=== PATIENT | female | born 1960 | race Two or more races ===

== ENCOUNTER 2020-05-29 07:05 | Inpatient (IN) | payer OTHER ==
[2020-05-29] VITALS (9 sets, daily range): BP systolic 114–139; BP diastolic 59–84
[~2020-05-29] VITALS: Ht 175.3 cm; Wt 98.4 kg
[~2020-05-29 07:05] MED LIST: RSO PO; VITAMIN D PO; [UNRECOGNIZED DRUG - OTHER] PO
--- NOTE | 2020-05-29 07:21 | Pre-Procedure Note/Attestation ---
Pre-Procedure Note/Attestation Complete Prior to Procedure Planned Procedure: not applicable Procedure Narrative: Cervical 5 6 artificial disc replacement versus anterior cervical discectomy and fusion with Cervical 67 anterior cervical discectomy and fusion versus artificial disc replacement Indications for Procedure Pre-Operative Diagnosis: C56 67 hnp Attestation I attest that I discussed the nature of the procedure; its benefits; risks and complications; and alternatives (and the risks and benefits of such alte rnatives), prior to the procedure, with the patient (or the patient's legal investment representative). I attest that, if there was a reasonable possibility of needing a blood transfusion, the patient (or the patient's legal investment representative) was given the [place] [facility] standardized written summary, pursuant to the Cristofer Corina Blood Safety Act ([place] Health and Safety Code # 1645, as amended). I attest that I re-evaluated the patient just prior to the surgery and that there has been no change in the patient's H&P, except as documented below: Guillermo Okeefe MD May 29, 2020 07:21
--- NOTE | 2020-05-29 07:22 | Brief Operative Note ---
Immediate Post Operative Note Operative Note Chief Complaint: neck pain and radiculopathy Pre-op Diagnosis: C56 67 hnp Procedure: Cervical 5 6 artificial disc replacement versus anterior cervical discectomy and fusion with Cervical 67 anterior cervical discectomy and fusion versus artificial disc replacement Post-op Diagnosis: same as pre-op Findings: consistent w/pre-op dx studies Surgeon: Maldonado Grill Attendant: Monique Anesthesiologist: Mundo Anesthesia: general Specimen: none Complications: none Condition: stable Fluids: IVF Estimated Blood Loss: minimal Drains: none Implant(s) used?: Yes - prodisc c sz 5 nuvasive c sz 6 osteocell 1cc Guillermo Okeefe MD May 29, 2020 07:22
[2020-05-29] MEDS ORDERED: Morphine Sulfate 2mg/ml Inj(IV/IM USE ONLY) IV PRN (07:30)
[2020-05-29] MEDS ORDERED: Chloraseptic Spray 20mL Bottle ORAL PRN (07:30)
[2020-05-29] MEDS ORDERED: Morphine Sulfate 4mg/ml Inj (IV USE ONLY) IV PRN ×2 (07:30)
[2020-05-29] MEDS ORDERED: HYDROcodone/Acetamin 7.5/325 tab ORAL PRN ×3 (07:30→08:30)
[2020-05-29] MEDS ORDERED: Metoclopramide 10mg/2ml Inj IVP PRN ×2 (07:30→08:30)
[2020-05-29] MEDS ORDERED: Naloxone 0.4mg/ml Inj IVP PRN (07:30)
[2020-05-29] MEDS ORDERED: HYDROcodone/Acetamin 5/325 tab ORAL PRN ×2 (07:30→08:30)
[2020-05-29] MEDS ORDERED: Milk of Magnesia 30ml Ud ORAL PRN (07:30)
[2020-05-29] MEDS ORDERED: HYDROmorphone 1mg/ml Carpuject IVP PRN (07:30)
--- NOTE | 2020-05-29 08:27 | Anethesia Preoperative Eval ---
Anesthesia Pre-op PMH/ROS General Date of Evaluation: May 29, 2020 Time of Evaluation: 09:29 Anesthesiologist: Kaya ASA Score: ASA 3 Mallampati Score Class I : Soft palate, uvula, fauces, pillars visible Class II: Soft palate, uvula, fauces visible Class III: Soft palate, base of uvula visible Class IV: Only hard plate visible Mallampati Classification: Class II Surgeon: Maldonado Diagnosis: Neck Pain Surgical Procedure: ACDF C5-6, ADR C6-7 Anesthesia History: none Family History: no anesthesia problems Allergies: Coded Allergies: MEPERIDINE (Verified Allergy, Severe, MIGRAINE, 05/27/20) PENICILLINS (Verified Allergy, Intermediate, ITCHING, 05/27/20) Medications: see eMAR Patient NPO?: Yes Past Medical History Hematology/Immune: Reports: anemia Other: obesity - BMI 33 PSxH Narrative: Abd Sx, C/S Anesthesia Pre-op Phys. Exam Physician Exam Last Vital Signs Date Time Temp Pulse Resp B/P (MAP) Pulse Ox O2 Delivery O2 Flow Rate FiO2 05/29/20 08:02 97.7 71 20 114/71 (85) 96 Constitutional: NAD Neurologic: CN 2-12 intact Cardiovascular: RRR Respiratory: CTA Gastrointestinal: S/NT/ND Airway Exam Mallampati Score: Class II MO: full ROM: limited Teeth: missing, intact Anesthesia Pre-op A/P Risk Assessment & Plan Assessment: ASA 3 Plan: GA, SED, GlideScope Status Change Before Surgery: No Pre-Antibiotics Dru Grams Ancef IV Given Within 1 Hr of Incision: Yes Time Given: 09:51 Shane Kirkpatrick MD May 29, 2020 08:27
--- NOTE | 2020-05-29 08:28 | Immediate Post-Op Evaluation ---
Immediate Post-Op Evalulation Immediate Post-Op Evalulation Procedure: ACDF C5-6,ADR C6-7 Date of Evaluation: May 29, 2020 Time of Evaluation: 12:19 IV Fluids: 900 LR Blood Products: 0 Estimated Blood Loss: 50 Urinary Output: 400 Blood Pressure Systolic: 141 Blood Pressure Diastolic: 74 Pulse Rate: 73 Respiratory Rate: 16 O2 Sat by Pulse Oximetry: 98 Temperature (Fahrenheit): 97.1 Pain Score (1-10): 2 Nausea: No Vomiting: No Complications 0 Patient Status: awake, reacts, patent, extubated, none Hydration Status: adequate Dru Grams Ancef IV Given Within 1 Hr of Incision: Yes Time Given: 09:51 Shane Kirkpatrick MD May 29, 2020 08:28
[2020-05-29] MEDS ORDERED: Atropine Sulfate 0.4mg/ml inj IVP PRN (08:30)
[2020-05-29] MEDS ORDERED: Labetalol 5mg/ml 20ml vial IV PRN (08:30)
[2020-05-29] MEDS ORDERED: oxyCODONE HCL/Acetaminophen 5/325mg ORAL PRN (08:30)
[2020-05-29] MEDS ORDERED: Ketorolac 30mg Inj IV PRN ×2 (08:30)
[2020-05-29] MEDS ORDERED: LORazepam Inj 2mg/ml 1ml IV PRN (08:30)
[2020-05-29] MEDS ORDERED: Midazolam 2mg/2ml Inj IVP PRN (08:30)
[2020-05-29] MEDS ORDERED: Acetaminophen (Non formulary) 100 ML IV ONE (08:30)
[2020-05-29] MEDS ORDERED: LR 1000ml 1,000 ML IVLG SCH (08:30)
[2020-05-29] MEDS ORDERED: DiphenhydrAMINE 50mg/ml Inj IVP PRN (08:30)
[2020-05-29] MEDS ORDERED: Lidocaine 1% Plain 30 ml INJ ONE (08:42)
[2020-05-29] MEDS ORDERED: fentaNYL 100 mcg/2 mL IV ONE (08:48)
[2020-05-29] MEDS ORDERED: Lidocaine 1% MPF 10mg/ml 5ml ONE (08:48)
[2020-05-29] MEDS ORDERED: propofoL 1,000mg/100ml IV ONE (09:00)
[2020-05-29] MEDS ORDERED: Thrombin 5000 units TOPIC ONE (09:04)
[2020-05-29] MEDS ORDERED: Gelfoam Size TOPIC ONE (09:04)
[2020-05-29] MEDS ORDERED: Vancomycin 1gm vial IVPB ONE (09:04)
[2020-05-29] MEDS ORDERED: Bacitracin 50000 Units Vial ONE (09:04)
[2020-05-29] MEDS ORDERED: Neostigmine 1mg/ml 10ml Inj ONE (11:40)
[2020-05-29] MEDS ORDERED: Glycopyrrolate 0.2mg/ml 1ml Vial ONE (11:40)
[2020-05-29] MEDS: Hydromorphone 0.5mg/0.5ml inj IVP PRN ×2 (12:19→12:49)
[2020-05-29] MEDS ORDERED: NS w/KCl 20mEq 1000ml 1,000 ML IV SCH (16:00)
--- NOTE | 2020-05-29 16:07 | Diagnostic Imaging Report ---
INDICATION: Pain, intraoperative TECHNIQUE: Intraoperative imaging Fluoroscopy time: 40 seconds Total dose: 0.72069 mGym2 Total number of images: 4 COMPARISON: None FINDINGS: Intraoperative images demonstrate surgical tool projected over the C5-6 disc. Subsequent images document placement of a disc prosthesis at C5-6 and anterior fusion hardware at C6-7. IMPRESSION: Intraoperative imaging, as described
[2020-05-29] MEDS ORDERED: Docusate 100mg cap ORAL SCH (18:00)
[2020-05-29] MEDS ORDERED: Vancomycin 1 GM in D5W 275 ML IVPB SCH (20:00)
--- NOTE | 2020-05-29 20:45 | Operative Note - Dictated ---
DATE OF OPERATION: 05/29/2020 SURGEON: Guillermo Okeefe MD, Orthopedic Spine Surgeon. RIPRAP WORKER: BRENDA Beltran PREOPERATIVE DIAGNOSES: 1. Intractable neck pain. 2. Radiculopathy. 3. Herniation, C5-C6, C6-C7. 4. Neural foraminal stenosis, C5-C6, C6-C7. 5. Stenosis. POSTOPERATIVE DIAGNOSES: 1. Intractable neck pain. 2. Radiculopathy. 3. Herniation, C5-C6, C6-C7. 4. Neural foraminal stenosis C5-C6, C6-C7. 5. Stenosis. PROCEDURE PERFORMED: 1. Anterior cervical discectomy and artificial disc replacement of C5-C6 using a Synthes Prodisc C 5 height. 2. Anterior cervical discectomy and fusion of C6-C7 Nuvasive Interlock C size 6 PEEK cage and three 13 mm screws, 1 mL of Osteocell allograft bone and local autograft. 3. Use of intraoperative microscope. 4. Motor evoked potential monitoring. 5. Somatosensory evoked potential monitoring. 6. Supervision and interpretation of fluoroscopy. COMPLICATIONS: None. ANESTHESIA: General. ESTIMATED BLOOD LOSS: Less than 100 mL. INDICATIONS FOR SURGERY: This patient is a 59-year-old female who has a history of diagnoses as listed above. As of result of this, the patient sustained intractable neck pain, radiculopathy, herniation, C5-C6, C6-C7, neural foraminal stenosis, C5-C6, C6-C7, stenosis. We tried a course of conservative management but despite this course there was still a significant component of persistent, recalcitrant neck pain and arm pain. The MRI demonstrated significant neural foraminal compromise secondary to disc herniations at C5-C6, C6-C7. We had a long discussion with Alison regarding the risks and benefits of surgery. Our discussion included but was not limited to nonoperative management, chiropractic management, another epidural steroid injection as well definitive management in the form of surgery. We recommended an artificial disc replacement of C5-C6 and anterior cervical discectomy and fusion of cervical C6-C7 as final definitive management. We reviewed the risks and benefits of surgery with the patient. Our discussion included a comprehensive review of the clinical issues and the nature of the clinical decision. We reviewed the alternatives, including doing nothing. The patient elected to proceed accordingly with an artificial disc replacement of C5-C6 and anterior cervical discectomy and fusion of C6-C7. We had a long discussion regarding the risks, alternatives and benefits of surgery. Our description of the risks included a discussion in person as well as a signed consent which detailed all pertinent risks from the procedure itself. Briefly, our discussion included but was not limited to infection, bleeding, pseudarthrosis, spinal cord injury, neurovascular injury, dural tear, CSF leak, neuropathy, paralysis, permanent weakness/drop foot/drop arm, paresthesias, blindness, palsy and weakness. The patient understood there may be a need for a revision surgery or additional procedures. Approach-related complications including dysphonia, dysphagia, blindness, permanent vocal cord and neural injury, hematoma, swallowing and breathing difficulty. Medical complications were reviewed including liver, kidney, shock, cardiopulmonary failure, anesthesia complications including , swelling, damage to the musculature, larynx/voice injury or loss, esophagus/throat, trachea, blood vessels and muscles/muscular sprain and lungs/pneumothorax during this surgical procedure; injury to deeper structures may be temporary or permanent. After this review of risks, the patient understood these and elected to proceed. A written and verbal consent was given. We discussed the pros and cons of all the alternatives. We discussed the uncertainties associated with the decision. Afterwards I assessed the patient's understanding and explored their preferences. All questions were answered and no guarantees were given. Medical clearance was obtained prior to surgery. INTRAOPERATIVE FINDINGS: At C5-C6, the disc itself was soft and spongy. It was not calcified or desiccated or crumbled. The discectomy revealed a tear in the posterior longitudinal ligament, which was left sided primarily. Upon evaluation of this lesion, I found the horn edges to be more acute in nature, not frayed. The disc demonstrated a large nuclear fragment, which was herniated through the posterior longitudinal ligament primarily effecting the left neural foramina and thecal sac along with the spinal cord therein. After dissection with Kerrison-1 and Kerrison-2, the entire thecal sac and spinal cord were entirely decompressed with C5-C6. At C6-C7, in the posterior longitudinal ligament approximately 10 degrees cephalad to caudad. Once the disc was resected, the tear appeared to have clean free edges, which were not desiccated or dry and appeared more acute in nature. The tear in the PLL was probed with a micro-set 1-B and gave rise to fragment of nuclear tissue, which was causing severe neuroforaminal encroachment left more than right sided. The tissue itself was soft and spongy, not calcified, crumbled, or dehydrated, which led me to believe this is more acute in nature. The tear in the posterior longitudinal ligament leading me to believe this is more traumatic in nature. The disc and nuclear fragment was resected with a combination of Kerrison-1 and Kerrison-2 rongeurs until complete foraminotomy was performed prior to placement of our implant. DESCRIPTION OF PROCEDURE: Under the benefit of general endotracheal anesthesia and with the assistance of the entire operative team, the patient was moved from the [facility] onto the operative table in the supine position. The head was secured and carefully positioned appropriately. Bilateral arms were secured with GelPads and foam and all bony prominences were padded. For the bilateral lower extremities SCD and YOKO hose were placed for DVT prophylaxis. A surgical timeout was called which corroborated our planned procedure of artificial disc replacement of an artificial disc replacement of C5-C6 and anterior cervical discectomy and fusion of C6-C7. Preoperative antibiotics were administered within 30 minutes of the incision for antibiotic prophylaxis. Using lateral fluoroscopic radiography, the operative levels were delineated. Next the wound was prepped and draped with Chlorhexidine and sterile drapes. An incision was based on lateral fluoroscopy and we centered our incision at the C5-C6, C6-C7 Interspace and next using a standard Julian-Gaitan anterior based approach the incision was taken down through the skin and subcutaneous tissues until the vertebral bodies and their corresponding disc spaces were visualized. A needle was placed into the interspace to confirm placement of the operative interspace and we performed the remainder of procedure under microscopic visualization. Next, using a bipolar and Bovie cautery to ensure meticulous hemostasis, the longus colli was mobilized bilaterally and retractors were placed deep to the longus colli bilaterally to address retraction. Next we turned our attention to the radical anterior discectomy. This was initially performed at C5-C6. First by using a 15 blade scalpel followed by narrow pituitaries and a Microsect 5-B curette was used to denude the endplate of all cartilaginous tissue. Next using a [employer] AM8 drillbit the vertebral endplates were denuded of all residual cartilage in a [id number] and layer by layer fashion, and ultimately the posterior uncinate joints bilaterally and posterior osteophytic lips and margins were carefully denuded until clear visualization of the posterior longitudinal ligament was possible. An endplate preparation was performed in the exact same fashion using an intervertebral seater grinder, sequential distraction was obtained throughout the disc space. We saw a tear/rent in the PLL and this was carefully mobilized and dissected using a Microsect 1-B curet until we visualized a discrete disc herniation with compression of the spinal cord as well as neural foramina which was left more than right sided. This neural foraminal compression was carefully resected using a Kerrison-1 and Kerrison-2 rongeurs until complete decompression of the spinal cord was visualized and complete decompression of the neural foramina and nerve root therein as well as the axilla and lateral margin of the nerve root was visualized and subsequently completely decompressed. The family was notified at one hour intervals throughout the procedure to provide for consistent updates. We next turned our attention towards trialing our implant within the disc space. We initially tried size 5 and this Prodisc Cervical spacer fit well in regards to depth and width. This implant was opened and prepared. Next under direct visualization I confirmed excellent fit in respect to the anterior and posterior vertebral bodies, the uncinate joints and in regards to toggle. Once satisfied with this placement on serial AP and lateral fluoroscopy I turned my attention towards cutting our venita. These were cut in the bones using a reciprocating drill and afterwards all free fragments of bone were irrigated. Next FloSeal was placed into the interspace, then removed in its entirety and the implant was inserted using fluoroscopic guidance. Next the Synthes Prodisc C size 5 ADR was then carefully advanced and secured into the intervertebral space under direct visualization and with supervision of AP and lateral fluoroscopic views. I next turned my attention towards the radical anterior discectomy. This was then performed at C6-C7. First by using a 15 blade scalpel followed by narrow pituitaries and a micro-sect 5-B curette was used to denude the endplate of all cartilaginous tissue. Next using a [employer] AM8 drillbit the vertebral endplates were denuded of all cartilaginous tissue in a [id number] and layer by layer fashion, and ultimately the posterior uncinate joints bilaterally and posterior osteophytic lips and margins were carefully denuded until wide and thorough visualization of the posterior longitudinal ligament was possible. At this level the endplate preparation was performed in the exact same fashion using an intervertebral seater grinder, sequential distraction was obtained throughout the disc space. We saw a tear/rent in the PLL and this was carefully mobilized and dissected using a micro-set 1-B curette until we visualized an obvious disc herniation with compression of the spinal cord as well as neural foramina which was left more than right sided. This neural foraminal compression was carefully resected using a Kerrison-1 and Kerrison-2 rongeurs until complete decompression of the spinal cord was visualized and complete decompression of the neural foramina and nerve root therein as well as the axilla and lateral margin of the nerve root was visualized and subsequently completely decompressed. We next turned our attention towards trialing our implant within the disc space. We initially tried size 5 and afterwards size 6 trial from the Nuvasive interlock system at each level, which appeared to be appropriate under AP and lateral fluoroscopy as well as in terms of its height, depth, width and lack of toggle. The PEEK polyetheretherketone interbody cages were then both packed with allograft bone from Osteocel and local autograft bone matrix. Next these were then carefully advanced and secured into their intervertebral spaces under direct visualization and with supervision of AP and lateral fluoroscopic views. We next turned our attention towards plating. Plating was performed at each level with the [place] interlock-C plating system. A total of three screws, size 13 mm in length were inserted and confirmed under AP and lateral fluoroscopy and confirmed to be in excellent position. After a finger sweep we confirmed removal of all sponges. The retractor was removed and we next turned our attention to meticulous hemostasis with FloSeal and bipolar cautery. After the sponge and needle count was again found to be correct with our second count, we next turned our attention to closure. The wound was again copiously irrigated with antibiotic impregnated saline Closure consisted of 4-0 clear nylon for the platysma, and 5-0 clear nylon for the superficial skin. Final skin closure and dressings consisted of Dermabond. Prior to final closure, a final radiograph was obtained which demonstrated the hardware is intact with excellent position throughout. The patient tolerated the procedure well. The patient was carefully extubated after the conclusion of surgery. We discussed the findings of the surgery with the family upon completion of the case. At this point the patient was transferred to the spine floor for further observation. Guillermo Okeefe M.D. DR: DECLAN JOB#: [id number] CC:
[2020-05-30 08:40] VITALS: BP 136/72
--- NOTE | 2020-05-30 08:40 | 48 Hour Post Anesthesia Eval ---
Post Anesthesia Evaluation Procedure: ACDF C5-6,ADR C6-7 Date of Evaluation: May 30, 2020 Time of Evaluation: 08:40 Blood Pressure Systolic: 136 0: 72 Pulse Rate: 68 Respiratory Rate: 18 Temperature (Fahrenheit): 97.6 O2 Sat by Pulse Oximetry: 98 Airway: patent Nausea: No Vomiting: No Pain Intensity: 3 Hydration Status: adequate Cardiopulmonary Status: stable Mental Status/LOC: patient returned to baseline Follow-up Care/Observations: n/a Post-Anesthesia Complications: none Follow-up care needed: ready to discharge Jay Jay Kraus MD May 30, 2020 08:40
--- NOTE | 2020-05-30 11:41 | Diagnostic Imaging Report ---
INDICATION: Pain, intraoperative TECHNIQUE: Intraoperative imaging Fluoroscopy time: 40 seconds Total dose: 0.72575 mGym2 Total number of images: 4 COMPARISON: None FINDINGS: Intraoperative images demonstrate surgical tool projected over the C5-6 disc. Subsequent images document placement of a disc prosthesis at C5-6 and anterior fusion hardware at C6-7. IMPRESSION: Intraoperative imaging, as described
--- NOTE | 2020-05-31 09:09 | Discharge Summary ---
Discharge Summary Discharge Summary _ DATE OF ADMISSION: 05/29/2020 DATE OF DISCHARGE: 05/29/2020 DISCHARGED BY: Dr. Guillermo Okeefe BRIEF HOSPITAL COURSE: Patient is a 59-year-old female, who has history of intractable neck pain with radiculopathy due to herniation and neural foraminal stenosis at C5-C6 and C6-C7 was admitted underwent anterior cervical discectomy and artificial disc replacement of C5-C6 and anterior cervical discectomy and fusion of C6-C7. She tolerated procedure well. Surgery was uneventful. Post-operatively, patient was admitted for post-op care. She was placed on SCDs for DVT prophylaxis and was encouraged use of incentive spirometer. Patient was given pain management. Diet was advanced. Incision was clean, dry and intact. Patient was ambulating well with good pain control and was tolerating diet. Patient was eventually cleared for discharge home. FINAL DIAGNOSES: 1. Intractable neck pain. 2. Radiculopathy. 3. Herniation, C5-C6, C6-C7. 4. Neural foraminal stenosis C5-C6, C6-C7. 5. Stenosis. PROCEDURE PERFORMED: 1. Anterior cervical discectomy and artificial disc replacement of C5-C6 using a Synthes Prodisc C 5 height. 2. Anterior cervical discectomy and fusion of C6-C7 Nuvasive Interlock C size 6 PEEK cage and three 13 mm screws, 1 mL of Osteocell allograft bone and local autograft. 3. Use of intraoperative microscope. 4. Motor evoked potential monitoring. 5. Somatosensory evoked potential monitoring. 6. Supervision and interpretation of fluoroscopy. (Refer to Operative Report) DISCHARGE DISPOSITION: Patient was discharged home. DISCHARGE MEDICATIONS: Refer to Medication Reconciliation Sheet. DISCHARGE INSTRUCTIONS: Post-op instructions given. Follow-up in a week. I have been assigned to complete a DC summary on this account, I was not involved with the patient's management.--KYLIE Goldstein Jacqueline Robles NP May 31, 2020 09:09
== END 2020-05-29 18:50 | disposition home or self-care (01) | DRG 473 ==
LOC: SDSOVERFLO 07:05 → 3E 14:04
PROC: 0RB30ZZ Excision of Cervical Vertebral Disc, Open Approach (ICD-10-PCS; principal; 2020-05-29 08:30)
PROC: 0RR30JZ Replacement of Cervical Vertebral Disc with Synthetic Substitute, Open Approach (ICD-10-PCS; principal; 2020-05-29 08:30)
PROC: 0RG10A0 Fusion of Cervical Vertebral Joint with Interbody Fusion Device, Anterior Approach, Anterior Column, Open Approach (ICD-10-PCS; principal; 2020-05-29 08:30)
DX: M50.122 Cervical disc disorder at C5-C6 level with radiculopathy (principal); M48.02 Spinal stenosis, cervical region; Z88.0 Allergy status to penicillin; Z88.8 Allergy status to other drugs, medicaments and biological substances; E66.9 Obesity, unspecified; Z68.33 Body mass index [BMI] 33.0-33.9, adult
CPT/HCPCS: 36415; 72040; 76000; 81025; 86850; 86900; 86901; 87081; 94003; 94150; J2405; J2710; U0002